=== PATIENT | male | born 1980 | race Caucasian/White ===

== ENCOUNTER 2021-09-27 11:23 | Inpatient (IN) | payer OTHER ==
[~2021-09-27] VITALS: Ht 172.7 cm; Wt 92.9 kg
--- NOTE | 2021-09-27 11:27 | PHYS DOC ---
Past Medical History Past Medical History: GERD, Hypertension Smoking Status: Current Every Day Smoker Alcohol Use: Occasionally Drug Use: Marijuana General Adult HPI: HPI: Patient is a 41 year old male who presents by private vehicle from Dr. Ta's office for evaluation and treatment of angioedema. He normally takes lisinopril, he has been taking it for quite some time, he took his last dose 2 days ago. He noticed that his tongue and throat have been progressively more swollen since yesterday. He reports very mild shortness of breath. He is able to swallow, mild voice changes, no stridor, no wheezing reported. No vomiting. He denies chest pain. He denies cough. He denies any other medication use. No reported trauma or injury. He was given epinephrine in Dr. Ta's office. The patient had declined EMS transport to here, his brought him in by private vehicle. Review of Systems: Review of Systems: Constitutional: Denies fever or chills. [] Eyes: Denies change in visual acuity. [] HENT: Tongue and throat swelling. Respiratory: Mild shortness of breath. No cough or hemoptysis Cardiovascular: Denies chest pain or edema. [] GI: Denies abdominal pain, nausea, vomiting Musculoskeletal: Denies back pain or joint pain. [] Integument: Denies rash, denies itching Neurologic: Denies headache, focal weakness or sensory changes. [] Psychiatric: Denies depression or anxiety. [] Heart Score: C/O Chest Pain: No Risk Factors: Risk Factors: DM, Current or recent (<one month) smoker, HTN, HLP, family history of CAD, obesity. Risk Scores: Score 0 - 3: 2.5% MACE over next 6 weeks - Discharge Home Score 4 - 6: 20.3% MACE over next 6 weeks - Admit for Clinical Observation Score 7 - 10: 72.7% MACE over next 6 weeks - Early Invasive Strategies Physical Exam: PE: Constitutional: Well developed, well nourished, no acute distress, non-toxic appearance. Not acutely ill-appearing HENT: Normocephalic, atraumatic, fusiform moderate lingual swelling is noted. Mild uvula swelling is noted. Oropharynx is patent, clear, no pooling of secretions, voice is minimally muffled, no hot potato voice, he is controlling secretions well, he speaks in clear sentences. No labial or facial swelling or edema. External ears are normal bilaterally. Nares are patent and clear Eyes: PERRL, EOMI, conjunctiva normal, no discharge. No periorbital edema or erythema. Neck: Normal range of motion, no tenderness, supple, no stridor. Trachea is midline. No neck swelling. Cardiovascular:Heart rate regular rhythm, 2 radial and +2 posterior tibial pulses bilaterally. Lungs & Thorax: Lungs are clear to auscultation bilaterally without rales, rhonchi or wheezes. No stridor. Equal chest rise. No retractions. He does speak in full sentences. No evidence of respiratory distress Abdomen: Abdomen is soft, nondistended, nontender to palpation. Skin: Warm, dry, no erythema, no rash. No open wounds. No jaundice. Back: No tenderness, no CVA tenderness. Full range of motion. Extremities: No tenderness, no cyanosis, no clubbing, ROM intact, no edema. [] Neurologic: Alert and oriented X 3, normal motor function, normal sensory function, no focal deficits noted. [] Psychologic: Affect normal, judgement normal, mood normal. He is pleasant and cooperative. EKG: EKG: EKG is interpreted at 1143 Rhythm is sinus Rate is 88 bpm [place] is left No STEMI Radiology/Procedures: Radiology/Procedures: [] Course & Med Decision Making: Course & Med Decision Making Pertinent Labs and Imaging studies reviewed. (See chart for details) IV Solu-Medrol, IV Pepcid and IV Benadryl given. IV TXA is given. He tolerated this well. He reports that he is feeling better. He denies any active dyspnea. Oxygen saturation is stable. Serial exam shows some at least mild improvement of edema. He is controlling his secretions, he is protecting his airway. I have discussed the findings, differential diagnosis and plan of care with him. He understands the plan for admission. Potassium was 3.1, IV potassium chloride replacement is ordered. He is accepted for admission by Dr. Ta. Freddy Disclaimer: Freddy Disclaimer: This electronic medical record was generated, in whole or in part, using a voice recognition dictation system. Departure Departure Impression: Primary Impression: Angioedema of tongue Disposition: ADMITTED INPATIENT Admitting Physician: Eusebio Ta Condition: GUARDED SABINA,RADHA Whiting DO Sep 27, 2021 11:27
[2021-09-27] MEDS ORDERED: FAMOTIDINE 20 MG/2 ML VIAL IVP ONE (11:45)
[2021-09-27] MEDS ORDERED: methylPREDNISolone SOD SUCC PF 125 MG/2 ML VIAL. IV ONE (11:45)
[2021-09-27] MEDS ORDERED: TRANEXAMIC ACID in NS IVPB 50 ML INJ ONE (11:45)
[2021-09-27] MEDS ORDERED: diphenhydrAMINE 50 MG/ML VIAL IVP ONE (11:45)
[2021-09-27 11:55] LABS: BASO # 0.1 x10^3/uL (0.0-0.2); BASO % 1 % (0-3); EOS # 0.5 x10^3/uL (0.0-0.7); EOS % 5 % (0-3); HEMATOCRIT 45.5 % (39.0-53.0); HEMOGLOBIN 15.3 g/dL (13.0-17.5); LYMPH # 4.3 x10^3/uL (1.0-4.8); LYMPH % 37 % (24-48); MEAN CORPUSCULAR HEMOGLOBIN 31 pg (25-35); MEAN CORPUSCULAR HGB CONC 34 g/dL (31-37); MEAN CORPUSCULAR VOLUME 91 fL (79-100); MONO # 0.8 x10^3/uL (0.0-1.1); MONO % 7 % (0-9); NEUT % 51 % (31-73); PLATELET COUNT 319 x10^3/uL (140-400); RED BLOOD COUNT 4.98 x10^6/uL (4.30-5.70); RED CELL DISTRIBUTION WIDTH 13.6 % (11.5-14.5); WHITE BLOOD COUNT 11.6 x10^3/uL (4.0-11.0)
[2021-09-27 12:08] LABS: CALCIUM 9.2 mg/dL (8.5-10.1); CREATININE 1.1 mg/dL (0.7-1.3); GFR 73.4; POTASSIUM 3.1 mmol/L (3.5-5.1)
[2021-09-27 15:00] VITALS: BP 135/93
[2021-09-27] MEDS: POTASSIUM CHLORIDE 10MEQ 100 ML IV SCH ×2 (15:54→17:51)
[2021-09-27] MEDS ORDERED: FAMO40TA4 PO (18:11)
[2021-09-27 19:00] VITALS: BP 139/90
[2021-09-27 23:00] VITALS: BP 155/100
[2021-09-28 03:03] VITALS: BP 162/107
[2021-09-28 07:00] VITALS: BP 173/113
--- NOTE | 2021-09-28 10:25 | PDOC ---
Provider Note Date of Service: DATE: 09/28/21 TIME: 10:23 Provider Note [id number] Justifications for Admission Other Justification ABEBE RICHARDSON MD Sep 28, 2021 10:25
--- NOTE | 2021-09-29 06:14 | SSS ---
DATE OF SERVICE: 09/28/2021 ADMIT DATE: 09/27/2021 Left AMA before being seen on 09/28/2021. HOSPITAL SUMMARY: A 41-year-old white male with history of hypertension and he has been on lisinopril for 8 months and doing well. He came to the office on the day of admission with swollen tongue and mild shortness of breath and that it started that day. This dosage was 20 mg daily of lisinopril and it was felt likely JUDI-induced angioedema was the problem. He was transferred to the ER after getting a shot of epinephrine in the office. There, he got IV Solu-Medrol, Benadryl and TXA 1 gram IV and was monitored overnight. He was doing well and knew that I was on the way to the hospital ____ to see him and he walked out of the hospital with his without signing AMA papers without any examination being performed. FINAL DIAGNOSES: Angioneurotic edema ____ swelling, likely secondary to lisinopril. OPERATIONS, PROCEDURES, COMPLICATIONS, CONSULTATIONS: None. DISPOSITION: No discharge instructions were given. He knows from office visits to stopped taking lisinopril and if he decides to continue care in our office, we will see him and likely use an ARB as an alternative. If he is a smoker and somewhat of an alcohol drinker as well, ____ having some anxiety and withdrawal symptoms from these substances to warrant this behavior. PROGNOSIS: Guarded. DENG/JESSICA DR: Adam TID: [id number]
== END 2021-09-28 10:02 | disposition left against medical advice (07) | DRG 916 ==
LOC: ER 11:23 → 2 NORTH 12:08 → 5 NORTH 19:31
PROVIDERS: ADMIT Family Medicine; ATTEND Family Medicine
DX: T78.3XXA Angioneurotic edema, initial encounter (principal); T46.4X5A Adverse effect of angiotensin-converting-enzyme inhibitors, initial encounter; Z87.891 Personal history of nicotine dependence; I10 Essential (primary) hypertension; K21.9 Gastro-esophageal reflux disease without esophagitis; Z88.8 Allergy status to other drugs, medicaments and biological substances; Y92.89 Other specified places as the place of occurrence of the external cause; F41.9 Anxiety disorder, unspecified; Z53.29 Procedure and treatment not carried out because of patient's decision for other reasons
CPT/HCPCS: 36415; 80048; 83735; 85025; 96365; 96375; J1200; J2930; J3480; J3490; 99285-25; G0378